=== PATIENT | female | born 1970 | race Caucasian/White ===

== ENCOUNTER 2016-12-17 19:50 | Emergency (ER) | payer OTHER ==
[2016-12-17 19:55] VITALS: BP 147/92; PULSE 90; RESP 15; TEMP 98.6; O2SAT 100
--- NOTE | 2016-12-17 19:56 | PD ---
Physical Exam Date Seen by Provider: Dec 17, 2016 Time Seen by Provider: 19:55 Narrative 46 yo female here for fever and weakness. Has sore throat. Fever comes and goes and gets better with meds. Ears and chest "feel funky". No sick contacts. Started 3 days ago. No other medical issues. Vitals are stable in triage. Awaiting Bed placement. [facility] Medical Record Reviewed: Yes Supervised Visit with DAT: No Deo Almendarez Dec 17, 2016 19:56
[2016-12-17] MEDS ORDERED: TOPI1TAB36 PO (20:03)
[2016-12-17] MEDS ORDERED: LEXA10TA PO (20:03)
[2016-12-17] MEDS ORDERED: VITA500S3 SL (20:03)
[2016-12-17] MEDS ORDERED: OMEP40CA2 PO (20:03)
[2016-12-17] MEDS ORDERED: VITA1000 PO (20:03)
[2016-12-17] MEDS ORDERED: BUTA1CAP PO (20:05)
[2016-12-17] MEDS ORDERED: BUSP15TA PO (20:05)
[2016-12-17 20:21] VITALS: BP 138/79; PULSE 71; RESP 18; O2SAT 99
[2016-12-17] MEDS ORDERED: KETOROLAC TROMETHAMINE 30 MG/ML (IVP) VIAL IV PUSH ONE (20:30)
[2016-12-17] MEDS ORDERED: SODIUM CHLOR 0.9% 1000 ML INJ 1,000 ML IV ONE (20:30)
--- NOTE | 2016-12-17 20:46 | PD ---
HPI Chief Complaint: Fever Time Seen by Provider: 20:17 Travel History International Travel<30 days: No Contact w/Intl Traveler<30days: No Traveled to known affect area: No History of Present Illness HPI Patient is a 46 year old female who comes in complaining of fevers and feeling unwell. She says she has been feeling very weak with a sore throat and ear pain for the past 3 days. She says she saw her PCP who told her she likely had a virus. She says last night she had a temperature of 101 and she has been taking Advil to try and make herself feel better. She says she has had a slight cough, but no SOB. She denies nausea or vomiting. She denies dysuria. PFSH Past Medical History Anxiety: Yes ?: Not Tubal Ligation: Yes Past Surgical History Section: Yes Other Surgery: Yes (right breast lumpectomy) Social History Alcohol Use: No Tobacco Use: Yes (less than a pk a day) Allergies-Medications (Allergen,Severity, Reaction): Coded Allergies: Avelox (Verified Allergy, Severe, 12/17/16) Reported Meds & Prescriptions Reported Meds & Active Scripts Active Reported Fioricet (Bvzncbjqnn-Klikuwqvfssrg-Bmjzmsde) 50-300-40 Mg Cap 1 Cap PO Q4H PRN Buspirone (Buspirone HCl) 15 Mg Tab 15 Mg PO DIRECTED Vitamin D-1000 (Cholecalciferol) 1,000 Unit Tab 50,000 Units PO WEEKLY Vitamin B-12 (Cyanocobalamin) 500 Mcg Subl 2,500 Mcg SL DAILY Topiramate 50 Mg Tab 50 Mg PO BID Omeprazole 40 Mg Cap 40 Mg PO BID Lexapro (Escitalopram Oxalate) 10 Mg Tab 10 Mg PO DAILY Review of Systems Except as stated in HPI: all other systems reviewed are Neg General / Constitutional: Positive: Fever HENT: Positive: Sore Throat, No: Congestion Cardiovascular: No: Chest Pain or Discomfort Respiratory: Positive: Cough, No: Shortness of Breath Gastrointestinal: No: Nausea, Vomiting, Abdominal Pain Genitourinary: No: Dysuria Skin: No Rash, No Change in Pigmentation Neurologic: Positive: Weakness Physical Exam Narrative GENERAL: Awake and alert, in no acute distress. SKIN: Focused skin assessment warm/dry. HEAD: Atraumatic. Normocephalic. EYES: Pupils equal and round. No scleral icterus. ENT: Mucous membranes pink and moist. No tonsillar swelling or exudates. NECK: Trachea midline. No JVD. CARDIOVASCULAR: Regular rate and rhythm. No murmur appreciated. RESPIRATORY: No accessory muscle use. Clear to auscultation. Breath sounds equal bilaterally. GASTROINTESTINAL: Abdomen soft, non-tender, nondistended. MUSCULOSKELETAL: No obvious deformities. No clubbing. No cyanosis. No edema. NEUROLOGICAL: Awake and alert. No obvious cranial nerve deficits. Motor grossly within normal limits. Normal speech. PSYCHIATRIC: Appropriate mood and affect; insight and judgment normal. Data Data Last Documented VS Vital Signs Date Time Temp Pulse Resp B/P Pulse Ox O2 Delivery O2 Flow Rate FiO2 12/17/16 20:21 71 18 138/79 99 Room Air 12/17/16 19:55 98.6 Orders Iv Access Insert/Monitor (12/17/16 20:22) Chest, Pa & Lat (12/17/16 ) Complete Blood Count With Diff (12/17/16 20:22) Comprehensive Metabolic Panel (12/17/16 20:22) Urinalysis - C+S If Indicated (12/17/16 20:22) Ed Urine Pregnancytest Poc (12/17/16 20:22) Sodium Chlor 0.9% 1000 Ml Inj (Ns 1000 M (12/17/16 20:30) Ketorolac Inj (Toradol Inj) (12/17/16 20:30) Influenzae A/B Antigen (12/17/16 20:22) Labs Laboratory Tests Test 12/17/16 12/17/16 20:35 20:45 White Blood Count 12.3 TH/MM3 Red Blood Count 4.79 MIL/MM3 Hemoglobin 13.1 GM/DL Hematocrit 40.3 % Mean Corpuscular Volume 84.2 FL Mean Corpuscular Hemoglobin 27.4 PG Mean Corpuscular Hemoglobin 32.6 % Concent Red Cell Distribution Width 14.7 % Platelet Count 232 TH/MM3 Mean Platelet Volume 8.8 FL Neutrophils (%) (Auto) 49.7 % Lymphocytes (%) (Auto) 42.8 % Monocytes (%) (Auto) 5.1 % Eosinophils (%) (Auto) 1.6 % Basophils (%) (Auto) 0.8 % Neutrophils # (Auto) 6.1 TH/MM3 Lymphocytes # (Auto) 5.3 TH/MM3 Monocytes # (Auto) 0.6 TH/MM3 Eosinophils # (Auto) 0.2 TH/MM3 Basophils # (Auto) 0.1 TH/MM3 CBC Comment AUTO DIFF Differential Comment AUTO DIFF CONFIRMED Platelet Estimate NORMAL Platelet Morphology Comment NORMAL Sodium Level 141 MEQ/L Potassium Level 3.6 MEQ/L Chloride Level 113 MEQ/L Carbon Dioxide Level 20.3 MEQ/L Anion Gap 8 MEQ/L Blood Urea Nitrogen 15 MG/DL Creatinine 0.94 MG/DL Estimat Glomerular Filtration 65 ML/MIN Rate Random Glucose 82 MG/DL Calcium Level 8.5 MG/DL Total Bilirubin 0.1 MG/DL Aspartate Amino Transf 15 U/L (AST/SGOT) Alanine Aminotransferase 20 U/L (ALT/SGPT) Alkaline Phosphatase 76 U/L Total Protein 7.4 GM/DL Albumin 3.7 GM/DL Urine Color YELLOW Urine Turbidity HAZY Urine pH 6.5 Urine Specific [place] 1.023 Urine Protein NEG mg/dL Urine Glucose (UA) NEG mg/dL Urine Ketones NEG mg/dL Urine Occult Blood NEG Urine Nitrite NEG Urine Bilirubin NEG Urine Urobilinogen LESS THAN 2.0 MG/DL Urine Leukocyte Esterase TRACE Urine RBC 2 /hpf Urine WBC 2 /hpf Urine Squamous Epithelial <1 /hpf Cells Urine Amorphous Sediment RARE Urine Bacteria FEW /hpf Urine Mucus FEW /lpf Microscopic Urinalysis Comment CULT NOT INDICATED MDM Medical Decision Making Medical Screen Exam Complete: Yes Emergency Medical Condition: Yes Differential Diagnosis URI versus pneumonia versus influenza versus viral illness Narrative Course Patient is a 46-year-old female comes in complaining of feeling weak and tired as well as a sore throat. Exam shows no acute abnormalities. IV established, labs sent. Labs show an elevated white blood cell count 12.3, all other labs are within normal limits. Chest x-ray shows no acute abnormalities. Urinalysis is negative for UTI. Patient given IV fluids and Toradol. She says she is feeling better. She is advised to rest and drink plenty of fluids. Take Tylenol or ibuprofen as needed. She is advised follow-up with her primary care doctor. This is likely a viral illness. Advised to return to the ED as needed for any worsening symptoms. Diagnosis Primary Impression: Viral illness Patient Instructions: General Instructions, Viral Syndrome (ED) Additional Instructions: Drink plenty of fluids. Take ibuprofen or Tylenol as needed. Follow-up with her primary care doctor. Return to the ED as needed for worsening symptoms. Disposition: 01 DISCHARGE HOME Condition: Stable Karolina Arellano MD Dec 17, 2016 20:46
[2016-12-17 20:50] LABS: AUTOMATED NEUTROPHIL # 6.1 TH/MM3 (1.8-7.7); BASOPHIL # 0.1 TH/MM3 (0-0.2); BASOPHIL % 0.8 % (0.0-2.0); EOSINOPHIL # 0.2 TH/MM3 (0-0.4); EOSINOPHIL % 1.6 % (0.0-4.0); HEMATOCRIT 40.3 % (35.0-46.0); LYMPH % 42.8 % (9.0-44.0); LYMPHOCYTE # 5.3 TH/MM3 (1.0-4.8); MEAN CELL VOLUME 84.2 FL (80.0-100.0); MEAN CORPUSCULAR HEMOGLOBIN 27.4 PG (27.0-34.0); MEAN CORPUSCULAR HGB CONC 32.6 % (32.0-36.0); MONO % 5.1 % (0.0-8.0); NEUT % 49.7 % (16.0-70.0); PLATELET COUNT 232 TH/MM3 (150-450); RED BLOOD COUNT 4.79 MIL/MM3 (4.00-5.30); RED CELL DISTRIBUTION WIDTH 14.7 % (11.6-17.2); WHITE BLOOD COUNT 12.3 TH/MM3 (4.0-11.0)
--- NOTE | 2016-12-17 20:52 | RADRPT ---
EXAM DATE/TIME: 12/17/2016 20:40 [place] COMPARISON: No previous studies available for comparison. INDICATIONS : Fever, flu-like symptoms for 3 days MEDICAL HISTORY : None. SURGICAL HISTORY : None. ENCOUNTER: Initial ACUITY: 3 days PAIN SCORE: 0/10 LOCATION: Bilateral chest FINDINGS: PA and lateral views of the chest demonstrate the lungs to be symmetrically aerated without evidence of mass, infiltrate or effusion. The cardiomediastinal contours are unremarkable except small hiatal hernia.. Osseous structures are intact. CONCLUSION: 1. No active disease. Small hiatal hernia. Mild dextroscoliosis. Kraig Palencia MD on December 17, 2016 at 20:49 Board Certified Radiologist. This report was verified electronically.
[2016-12-17 20:57] LABS: HEMO FLAGS AUTO DIFF
[2016-12-17 21:17] LABS: ALT (GPT) 20 U/L (10-53)
[2016-12-17 21:19] LABS: ALKALINE PHOSPHATASE 76 U/L (45-117); TOTAL BILIRUBIN ADULT 0.1 MG/DL (0.2-1.0)
[2016-12-17 21:23] LABS: BACTERIA, URINE FEW /hpf; BLOOD, URINE NEG (NEG); COMMENT (UR) CULT NOT INDICATED; CULTURE IF INDICATED CULT NOT INDICATED; GLUCOSE,URINE NEG (NEG); KETONE, URINE NEG (NEG); MUCUS URINE FEW /lpf (OCC); NITRITE,URINE NEG (NEG); PH, URINE 6.5 (5.0-8.5); SQUAMOUS EPITHELIAL CELL URINE <1 /hpf (0-5); URINE COLOR YELLOW (YELLW/STRAW)
[2016-12-17 21:26] LABS: ANION GAP 8 MEQ/L (5-15); AST (GOT) 15 U/L (15-37); BICARBONATE 20.3 MEQ/L (21.0-32.0); BLOOD UREA NITROGEN 15 MG/DL (7-18); CHLORIDE 113 MEQ/L (98-107); GLOMERULAR FILTRATION RATE 65 ML/MIN (>89); POTASSIUM 3.6 MEQ/L (3.5-5.1); SODIUM (NA) 141 MEQ/L (136-145)
[2016-12-17 22:02] LABS: PLATELET ESTIMATE SMEAR NORMAL (NORMAL); PLATELET MORPHOLOGY NORMAL (NORMAL); SCAN/DIFF AUTO DIFF CONFIRMED
== END 2016-12-17 22:46 | disposition home or self-care (01) ==
LOC: NEPC 19:50
DX: B34.9 Viral infection, unspecified (principal)
CPT/HCPCS: 71020; 80053; 81001; 84703; 85025; 87804; 96360; 99284; J7030